=== PATIENT | male | born 1945 | race African-American/Black ===

== ENCOUNTER 2017-06-20 08:05 | Day surgery (SDC) | payer OTHER, MEDICARE ==
[2017-06-20] MEDS ORDERED: TETRACAINE 0.5% OPHTH 1 DOSE AFFEYE ONE ×2 (08:45→10:48)
[2017-06-20] MEDS ORDERED: VIGAMOX 0.5% OPHTH 1 DOSE AFFEYE ONE ×5 (08:50→11:03)
[2017-06-20] MEDS ORDERED: MYDRIACIL OPHTH 1 DOSE AFFEYE ONE ×3 (09:01→09:03)
[2017-06-20] MEDS ORDERED: CYCLOGYL 1% OPHTH 1 DOSE OP ONE ×3 (09:01→09:03)
[2017-06-20] MEDS ORDERED: AK-DILATE 2.5% OPHTH 1 DOSE OP ONE ×3 (09:01→09:03)
[2017-06-20] MEDS ORDERED: PROLENSA OPHTH 1 DOSE AFFEYE ONE (09:04)
[2017-06-20] MEDS ORDERED: ALPHAGAN-P OPHTH 1 DOSE AFFEYE ONE (09:05)
[2017-06-20] MEDS: NS 500 ML IV 500 ML IV ONE (09:46)
[2017-06-20] MEDS ORDERED: AK-DILATE 10% OPHTH 1 DOSE AFFEYE ONE (10:03)
[2017-06-20] MEDS ORDERED: BETADINE OPHTH SOLN 5% EACHEYE ONE (10:48)
[2017-06-20] MEDS ORDERED: BSS OPHTH (PLAIN) 500 ML with VANCOMYCIN HCL 500 MG VIAL 25 MG, ADRENALINE CHL INJ 1 MG IR ONE ×3 (10:51)
[2017-06-20] MEDS ORDERED: DUOVISC IO ONE (10:51)
[2017-06-20] MEDS ORDERED: ADRENALINE CHL INJ IJ ONE (10:51)
[2017-06-20] MEDS ORDERED: XYLOCAINE-MPF 1% IJ ONE (10:51)
[2017-06-20 14:42] VITALS: BP 156/87
[2017-06-20] MEDS ORDERED: DIPRIVAN VIAL ONE (15:57)
== END 2017-06-20 11:30 | disposition home or self-care (01) ==
LOC: SURG1 08:05
PROVIDERS: ATTEND Ophthalmology
PROC: 08RK3JZ Replacement of Left Lens with Synthetic Substitute, Percutaneous Approach (ICD-10-PCS; principal; 2017-06-20 10:30)
PROC: 08DK3ZZ Extraction of Left Lens, Percutaneous Approach (ICD-10-PCS; principal; 2017-06-20 10:30)
DX: H25.12 Age-related nuclear cataract, left eye (principal); H25.012 Cortical age-related cataract, left eye; H52.222 Regular astigmatism, left eye
CPT/HCPCS: 99100; A4217; J0170; J3370; J3490

== ENCOUNTER 2017-07-10 07:55 | Day surgery (SDC) | payer OTHER, MEDICARE ==
[2017-07-10] MEDS ORDERED: TETRACAINE 0.5% OPHTH 1 DOSE AFFEYE ONE ×2 (08:11→08:35)
[2017-07-10] MEDS ORDERED: AK-DILATE 2.5% OPHTH 1 DOSE AFFEYE ONE (08:13)
[2017-07-10] MEDS ORDERED: ALPHAGAN-P OPHTH 1 DOSE AFFEYE ONE ×3 (08:13→08:22)
[2017-07-10] MEDS ORDERED: AK-DILATE 2.5% OPHTH 1 DOSE OP ONE ×2 (08:17→08:22)
[2017-07-10 12:33] VITALS: BP 172/88
== END 2017-07-10 08:45 | disposition home or self-care (01) ==
LOC: SURG1 07:55
PROVIDERS: ATTEND Ophthalmology
PROC: 085F3ZZ Destruction of Left Retina, Percutaneous Approach (ICD-10-PCS; principal; 2017-07-10 09:30)
DX: E11.3312 Type 2 diabetes mellitus with moderate nonproliferative diabetic retinopathy with macular edema, left eye (principal)